=== PATIENT | female | born 2005 | race Two or more races ===

== ENCOUNTER 2023-07-22 20:20 | Emergency (ER) | payer MEDICAID, OTHER | END 2023-07-22 21:10 | disposition left against medical advice (07) | LOC: ER 20:20 | DX: J11.1 Influenza due to unidentified influenza virus with other respiratory manifestations (principal); Z53.21 Procedure and treatment not carried out due to patient leaving prior to being seen by health care provider ==

== ENCOUNTER 2025-01-26 13:12 | Emergency (ER) | payer MEDICAID ==
[~2025-01-26] VITALS: Ht 172.7 cm; Wt 80.3 kg
--- NOTE | 2025-01-26 13:25 | ED.PDOC ---
History of Present Illness HPI Comments 19-year-old female presents to the ER with the chief complaint of abnormal vaginal bleeding. Patient reports on being 10 weeks and having a sudden onset of sharp lower abdominal pain which started last night associated with vaginal bleeding. Patient notes on . Denies any other symptoms at thi s time. Denies chills, fever, N/V/D, SOB, CP. No other associated symptoms, modifiers, recent injuries or sick contacts present at this time. Chief Complaint: Vaginal Bleed Time Seen by MD: 13:30 Reviewed Notes: Nurses Notes, Medications, Allergies Allergies: Coded Allergies: NO KNOWN ALLERGIES (Unverified , 01/26/25) Information Source: Patient Mode of Arrival: Ambulatory Severity: Moderate Timing: Hours Duration: Since onset, Hours Prehospital treatment: None Past Medical History PAST MEDICAL HISTORY: Denies Past Medical History (Other): Surgical History: Denies all surgeries TRAIN MASTER History: No Pertinent TRAIN MASTER History Family History Family History: Reviewed,noncontributory to illness, Family hx of DM, Family hx of Cancer, Family hx of HTN Social History Smoker: Non-Smoker Alcohol: Denies ETOH Use Drugs: Marijuana Lives In: Home Constitutional: denies: chills, diaphoresis, fatigue, fever, malaise, sweats, w eakness, others EENTM: denies: blurred vision, double vision, ear bleeding, ear discharge, ear drainage, ear pain, ear ringing, eye pain, eye redness, hearing loss, mouth pain, mouth swelling, nasal discharge, nose bleeding, nose congestion, nose pain, photophobia, tearing, throat pain, throat swelling, voice changes, others Respiratory: denies: cough, hemoptysis, orthopnea, SOB at rest, shortness of breath, SOB with excertion, stridor, wheezing, others Cardiovascular: denies: chest pain, dizzy spells, diaphoresis, Dyspnea on exertion, edema, irregular heart beat, left arm pain, lightheadedness, palpitations, PND, syncope, others Gastrointestinal: reports: abdominal pain (Sharp lower abdomen); denies: abdomen distended, blood streaked bowels, constipated, diarrhea, dysphagia, difficulty swallowing, hematemesis, melena, nausea, poor appetite, poor fluid intake, rectal bleeding, rectal pain, vomiting, others Genitourinary: reports: abnormal vagina bleeding, (10 weeks); denies: burning, dyspareunia, dysuria, flank pain, frequency, hematuria, incontinence, pain, vagina discharge, urgency, others Neurological: denies: dizziness, fainting, headache, left sided numbness, left sided weakness, numbness, paresthesia, pre-existing deficit, right sided numbness, right sided weakness, seizure, speech problems, tingling, tremors, weakness, others Musculoskeletal: denies: back pain, gout, joint pain, joint swelling, muscle pain, muscle stiffness, neck pain, others Integumetry: denies: bruises, change in color, change in hair/nails, dryness, laceration, lesions, lumps, rash, wounds, others Allergic/Immunocompromised: denies: Difficulty Healing, Frequent Infections, Hives, Itching, others Hematologic/Lymphatic: denies: anemia, blood clots, easy bleeding, easy bruising, swollen glands, others Endocrine: denies: excessive hunger, excessive sweating, excessive thirst, excessive urination, flushing, intolerance to cold, intolerance to heat, unexplained weight gain, unexplained weight loss, others Psychiatric: denies: anxiety, bipolar disorder, depression, hopeless, panic disorder, schizophrenia, sleepless, suicidal, others All Other Systems: Reviewed and Negative Physical Exam General Appearance: Mild Distress HEENT: Normal ENT Inspection, Pharynx Normal, TMs Normal Neck: Full Range of Motion, Non-Tender, Normal, Normal Inspection Respiratory: Chest Non-Tender, Lungs Clear, No Accessory Muscle Use, No Respiratory Distress, Normal Breath Sounds Cardiovascular: No Edema, No JVD, No Murmur, No Gallop, Normal Peripheral Pulses, Regular Rate/Rhythm Breast Exam: Deferred Gastrointestinal: No Organomegaly, No Pulsatile Mass, Normal Bowel Sounds, Soft, Suprapubic, Tenderness Genitalia: Deferred Pelvic: Deferred Rectal: Deferred Extremities: No calf tenderness, Normal capillary refill, Normal range of motion, Non-tender, No pedal edema Musculoskeletal : Apperance: Normal Neurologic: Alert, claims clerk II-XII nml as Tested, No Motor Deficits, Normal Affect, Normal Mood, No Sensory Deficits Cerebellar Function: Normal Reflexes: Normal Skin: Dry, Normal Color, Warm Lymphatic: No Adenopathy Was a procedure done? Was a procedure done?: No Differential Dx Considerations may include: Threatened , ectopic , complete X-Ray, Labs, Meds, VS Vital Signs Date Time Temp Pulse Resp B/P (MAP) Pulse Ox O2 Delivery O2 Flow Rate FiO2 01/26/25 14:51 97.7 89 18 118/86 (97) 97 97.7 01/26/25 13:15 97.6 104 18 117/71 97 97.6 Lab Test 01/26/25 13:32 01/26/25 13:30 Range/Units Beta HCG, Quantitative 120699.4 H 1.5-4.2 mIU/mL Urine Color Colorless Yellow Urine Clarity Turbid H Clear Urine pH 6.5 5.0-9.0 Urine Specific [place] 1.015 1.001-1.035 Urine Protein Trace H Negative Urine Ketones Negative Negative Urine Blood 3+ H Negative /uL Urine Nitrite Negative Negative Urine Bilirubin Negative Negative Urine Urobilinogen Normal Negative mg/dL Urine Leukocyte Esterase Negative Negative /uL Urine RBC 2 0 - 4 /hpf Urine Microscopic WBC 5 0-5 /HPF Urine Squamous Epithelial Cells Mod <5 /hpf Urine Bacteria Few H None Seen /hpf Urine Mucus Few None Seen Urine Glucose Normal Normal mg/dL The urine test is negative for infection at this time The patient's quantitative hCG is 408209 The ultrasound of the pelvis shows: IMPRESSION: 1. Twin viable intrauterine with sonographic age measuring approximately 12 weeks 5-6 days. Close clinical and sonographic follow-up is suggested. 2. Nonspecific anechoic structures adjacent to the gestational sac, attention on follow-up is suggested. Images Reviewed?: Images reviewed and evaluated by me Time of 1ST Reevaluation: 14:00 Reevaluation 1ST: Unchanged Patient Education/Counseling: Diagnosis, Treatment, Prognosis, Need For Follow Up Family Education/Counseling: No Family Present SEPSIS Sepsis Screen Date sepsis recognized/suspect: Jan 26, 2025 Time Sepsis recognized/suspect: 1316 Recent Procedure: No On Antibiotic Therapy: No Respiratory Rate >20: No Heart Rate >90: Yes Temp<36 C (96.8 F) or >38.3 C: No SBP <90 or MAP <65 mmHG: No New Acute Mental Status Change: No Is the patient on CPAP, BIPAP,: No Physician Orders Ob Ultrasound Comp Less 14wks (01/26/25 13:26) Vital Signs Date Time Temp Pulse Resp B/P (MAP) Pulse Ox O2 Delivery O2 Flow Rate FiO2 01/26/25 14:51 97.7 89 18 118/86 (97) 97 97.7 01/26/25 13:15 97.6 104 18 117/71 97 97.6 Departure 1 Departure Time of Disposition: 15:20 Impression: Primary Impression: Threatened Disposition: HOME / SELF CARE / HOMELESS Condition: Fair Discharged With: Self Critical Care Note Critical Care Time?: No Stability Stability form required: No Heart Score Heart Score: Heart Score Response (Comments) Value History N/A 0 EKG N/A 0 Age N/A 0 Risk Factors N/A 0 Troponin N/A 0 Total 0 I personally scribed for SLADE HANCOCK MD ([email or web address]) on 01/26/25 at 13:25. Electronically submitted by Mandeep Ogden ([email or web address]). SLADE HANCOCK MD Jan 26, 2025 13:25
--- NOTE | 2025-01-26 14:15 | DVH ---
OB ULTRASOUND <14 WEEKS: HISTORY: pain TECHNIQUE: Multiple real-time grayscale sonographic images of the pelvis with duplex Doppler color flow, spectral and M-mode analysis. TRANSDUCERS: Transabdominal FINDINGS: The uterus measures 16.5 x 13.1 x 9.4 The ovaries were not visualized. Twin intrauterine is seen. There are small lucencies seen adjacent to the gestational sac. Fetus A: IUP single live fetus at 12 weeks 5 days average ultrasound age based on mean crown-rump length of 6.3 cm and gestational sac size of 6.1 cm heart rate detected at 165 beats per minute. Yolk sac not visualized. Fetus B: IUP single live fetus at 12 weeks 6 days average ultrasound age based on mean crown-rump length of 6.5 cm and gestational sac size of 6.1 cm heart rate detected at 155 beats per minute. Yolk sac was visualized. IMPRESSION: 1. Twin viable intrauterine with sonographic age measuring approximately 12 weeks 5-6 days. Close clinical and sonographic follow-up is suggested. 2. Nonspecific anechoic structures adjacent to the gestational sac, attention on follow-up is suggested.
[2025-01-26 14:21] LABS: Urine Protein, UAD TRACE (Negative)
[2025-01-26 14:51] VITALS: BP 118/86; PULSE 89; RESP 18; TEMP 97.7; O2SAT 97
== END 2025-01-26 16:18 | disposition home or self-care (01) ==
LOC: ER 13:12
DX: O20.0 Threatened abortion (principal); Z3A.10 10 weeks gestation of pregnancy; Z79.899 Other long term (current) drug therapy
CPT/HCPCS: 36415; 76801; 81001; 84702